=== PATIENT | female | born 1965 | race Caucasian/White ===

== ENCOUNTER → 2019-05-29 | Outpatient (CLI) | payer OTHER ==
[~2019-05-29] MED LIST: MYCO500T3; TACR1CAP23; [UNRECOGNIZED DRUG - OTHER]
== END | disposition home or self-care (01) ==
LOC: RAD 17:26
PROVIDERS: ATTEND Internal Medicine Nephrology
DX: I12.9 Hypertensive chronic kidney disease with stage 1 through stage 4 chronic kidney disease, or unspecified chronic kidney disease (principal); N18.9 Chronic kidney disease, unspecified; Z94.0 Kidney transplant status; K57.92 Diverticulitis of intestine, part unspecified, without perforation or abscess without bleeding; I31.9 Disease of pericardium, unspecified; N39.0 Urinary tract infection, site not specified; I50.9 Heart failure, unspecified
CPT/HCPCS: 71046

== ENCOUNTER → 2019-10-30 | Outpatient (CLI) | payer OTHER | END | disposition home or self-care (01) | LOC: CFH 07:01 | PROVIDERS: ATTEND Nurse Practitioner | DX: I12.9 Hypertensive chronic kidney disease with stage 1 through stage 4 chronic kidney disease, or unspecified chronic kidney disease (principal); I50.9 Heart failure, unspecified; R60.9 Edema, unspecified; K57.92 Diverticulitis of intestine, part unspecified, without perforation or abscess without bleeding; I11.0 Hypertensive heart disease with heart failure; I31.9 Disease of pericardium, unspecified; N18.9 Chronic kidney disease, unspecified; Z87.448 Personal history of other diseases of urinary system; Z94.0 Kidney transplant status | CPT/HCPCS: 93306 ==

== ENCOUNTER 2020-03-12 15:55 | Emergency (ER) | payer OTHER ==
--- NOTE | 2020-03-12 16:18 | NUR ---
ZAHIRA MORA IN TRIAGE EVALUATING PT AT THIS TIME. REPORTED SYMPTOMS DISCUSSED WITH
--- NOTE | 2020-03-12 16:21 | NUR ---
[facility] NEURO CALLED PER ZAHIRA MORA'S INSTRUCTIONS, PT TO CT IMMEDIATELY FROM TRIAGE.
--- NOTE | 2020-03-12 16:22 | NUR ---
Pt to CT directly from triage, ok per Dr. Nuno.
--- NOTE | 2020-03-12 16:33 | NUR ---
PATIENT IN CT SCAN, MEDICAL HISTORY OBTAINED FROM SPOUSE. TELE DOC COMPUTER IN ROOM.
--- NOTE | 2020-03-12 16:43 | NUR ---
PATIENT BACK FROM CT SCAN, TELE DOC DOING EVAL.
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
[2020-03-12] MEDS ORDERED: OMNIPAQUE 350 MG/ML, 100ML BOTTLE ONE (16:55)
[2020-03-12 17:03] LABS: BASOPHILS % (AUTO) 1 % (0-1); EOSINOPHILS % (AUTO) 3 % (1-7); LYMPHOCYTES % (AUTO) 32 % (22-44); MEAN CORPUSCULAR HEMOGLOBIN 31.6 pg (27.0-34.8); MEAN CORPUSCULAR HGB CONC 33.9 g/dL (32.4-35.8); MEAN PLATELET VOLUME 9.4 fL (7.4-10.4); MONOCYTES % (AUTO) 8 % (2-9); NEUTROPHILS % (AUTO) 56 % (42-75); PLATELET COUNT 212 x10^3/uL (130-400); RED BLOOD COUNT 4.09 x10^6/uL (3.82-5.3); RED CELL DISTRIBUTION WIDTH 13.7 % (9.6-15.2)
[2020-03-12 17:04] LABS: MD NO
[2020-03-12 17:32] LABS: PROTHROMBIN TIME 10.3 Seconds (9.6-11.5)
[2020-03-12 17:33] LABS: INTERNATIONAL NORMALIZED RATIO 0.97 (0.93-1.1)
[2020-03-12] MEDS ORDERED: HYDROmorphone 1 MG/ML, 1ML INJ ONE ×2 (17:34→20:53)
[2020-03-12] MEDS: HYDROmorphone 2 MG/ML, 1ML IVPush PRN ×2 (17:36→21:01)
[2020-03-12] MEDS ORDERED: ONDANSETRON 2MG/ML, 2ML ONE ×2 (17:44→20:59)
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
[2020-03-12] MEDS ORDERED: ONDANSETRON 2MG/ML, 2ML IVPush ONE ×2 (18:00→21:00)
[2020-03-12] MEDS ORDERED: DIAZEPAM 5 MG/ML, 2ML ONE (18:57)
[2020-03-12] MEDS ORDERED: DIAZEPAM 5 MG/ML, 2ML IV ONE (19:00)
--- NOTE | 2020-03-12 19:12 | NUR ---
PATIENT WHEELED TO BATHROOM WITH ASSISTANCE OF SPOUSE, VALIUM GIVEN AFTER PATIENT CAME OUT OF BATHROOM AND PATIENT IMMEDIATELY TAKEN TO MRI BY TECH.
--- NOTE | 2020-03-12 19:47 | NUR ---
PATIENT IN MRI.
--- NOTE | 2020-03-12 20:32 | NUR ---
PATIENT BACK FROM MRI, RESTING IN [place], SPOUSE AT BEDSIDE, VSS, CALL LIGHT WITHIN REACH. WAITING FOR MRI RESULTS.
[2020-03-12 21:06] VITALS: BP 143/81
--- NOTE | 2020-03-12 21:25 | NUR ---
Patient given discharge instructions and prescriptions and they have confirmed that they understand the instructions. Patient stable, wheeled out by this RN to private vehicle with spouse driving. All patient belongings gathered and taken with patient.
== END 2020-03-12 21:25 | disposition home or self-care (01) ==
LOC: ED 18:43
DX: M54.16 Radiculopathy, lumbar region (principal); R51.9 Headache, unspecified; M79.601 Pain in right arm; R20.0 Anesthesia of skin; R53.1 Weakness; Z88.0 Allergy status to penicillin
CPT/HCPCS: 70450; 70496; 70498; 72141; 72148; 80047; 82962; 85025; 85610; 85730; 93005; 96374; 96375; 96376; 99285; J1170; J2405; J3360; Q9967